=== PATIENT | male | born 1995 | race Caucasian/White ===

== ENCOUNTER 2023-08-23 13:18 | Outpatient (REF) | payer BC, SELFPAY ==
[2023-08-25 13:52] LABS: Appearance Normal; Container Type 50 mL Conical; Double Forms 1.5 %; Head Shape Abnormal 36.5 %; Midpiece Defect 6.5 %; Motile/Ejaculate 322.4 x10(6) (>=9.0); Motile/mL 92.1 x10(6) (>=6.0); Motility 78 % (>=40); Semen Volume 3.5 mL (>=1.5); Sperm/mL 118.1 x10(6) (>=15.0); Strict Morph NL 10.5 % (>=4.0); Study Type Semen; pH 7.5 (>=7.2)
== END 2023-08-23 13:19 | disposition home or self-care (01) ==
LOC: LBN 13:18
PROVIDERS: PCP Family Medicine; Visit Provider Family Medicine
DX: N46.9 Male infertility, unspecified (principal)
CPT/HCPCS: 89240; 89310